=== PATIENT | female | born 1985 | race Hispanic/Latino ===

== ENCOUNTER 2016-10-15 12:59 | Inpatient (IN) | payer OTHER ==
[~2016-10-15] VITALS: Ht 162.6 cm; Wt 81.6 kg
[2016-10-15] VITALS (26 sets, daily range): BP systolic 123–184; BP diastolic 70–114
[~2016-10-15 12:59] MED LIST: NO HOME MEDS
--- NOTE | 2016-10-15 13:25 | NUR ---
DR HOLLOWAY IS ON UNIT. INFORMED OF 1ST BP. OBTAINED ORDER FOR IV SITE SALINE LOCKED WITH LAB DRAW. ALSO OK TO PT TO GO DOWN FOR U/S.
--- NOTE | 2016-10-15 13:35 | NUR ---
IV SITE, 18 G IN LFA X 1 ATTEMPT. LABS FROM SITE THEN SALINE LOCKED.
[2016-10-15 13:36] LABS: URINE BILIRUBIN - DIPSTICK NEGATIVE (NEGATIVE); URINE BLOOD DIPSTICK NEGATIVE (NEGATIVE); URINE CLARITY CLEAR; URINE COLOR YELLOW; URINE GLUCOSE - DIPSTICK NEGATIVE (NEGATIVE); URINE KETONE NEGATIVE (NEGATIVE); URINE LEUK ESTERASE TRACE (NEGATIVE); URINE NITRITE - DIPSTICK NEGATIVE (Negative); URINE PROTEIN - DIPSTICK TRACE mg/dL (NEG-TRACE); URINE SPECIFIC GRAVITY 1.015; URINE UROBILINOGEN - DIPSTICK 0.2 E.U./dL (0.2)
[2016-10-15 13:39] LABS: BARBITURATES NEGATIVE (NEGATIVE); COCAINE NEGATIVE (NEGATIVE); METHADONE NEGATIVE (NEGATIVE); OXCYCODONE NEGATIVE (NEGATIVE); TETRAHYDROCANNABIONOL NEGATIVE (NEGATIVE); TRICYLIC ANTIDEPRESSANTS NEGATIVE (NEGATIVE)
[2016-10-15 13:51] LABS: HEMATOCRIT 38.9 % (37.0-47.0); HEMOGLOBIN 13.3 g/dl (12.0-16.0); IMMATURE GRANULOCYTES 0.7 % (0.0-1.0); MEAN CELL VOLUME 87.6 fL CALC (80.0-100.0); MEAN CORPUSCULAR HGB CONC 34.2 g/L CALC (32.0-36.0); NEUT# 2.99 thou/uL (2.00-7.15); RED BLOOD COUNT 4.44 mill/uL (4.20-5.60); RED CELL DISTRI WIDTH 14.4 % (11.5-15.5)
[2016-10-15 14:03] LABS: ALBUMIN 3.3 g/dL (3.2-5.0); ALKALINE PHOSPHATASE 182 u/l (38-126); ANION GAP 14 (6-22 (CALC)); BILIRUBIN, TOTAL 0.3 mg/dL (0.0-1.4); BUN 8 mg/dL (7-17); BUN/CREATININE RATIO 17 (12-20 (CALC)); CALCIUM 9.1 mg/dL (8.4-10.2); CARBON DIOXIDE 19 mmol/l (22-30); CHLORIDE 107 mmol/l (95-108); CREATININE 0.5 mg/dL (0.5-1.0); GFR > 60 ML/MIN (>=60 (CALC)); GFR FOR AFR.AMER. > 60 ML/MIN (>=60 (CALC)); GLUCOSE 65 mg/dL (65-105); POTASSIUM 4.2 mmol/l (3.5-5.1); SGOT/AST 19 u/l (14-36); SGPT/ALT 24 u/l (9-52); SODIUM 135 mmol/l (137-146); TOTAL PROTEIN 6.2 g/dL (6.3-8.2)
--- NOTE | 2016-10-15 14:15 | NUR ---
PT IS UP IN BED HOLDING INFANT. CONDITION IS STABLE. VITALS CHARTED. REFLEXES NOW + 2 BLE, NO CLONUS.
--- NOTE | 2016-10-15 14:50 | NUR ---
PT UP TO W/C. TO U/S. CONDITION IS STABLE. NO HEADACHE AT THIS TIME. BPP ORDERED.
--- NOTE | 2016-10-15 15:05 | NUR ---
PT RETURNED FROM U/S. [email or web address] REPORTS BPP 8.8. PT IN BED, RESUMED EFM. CONDITION IS STABLE. LIGHTS DIM. NO VISITORS AT THIS TIME. REASSURED AND PT GOING TO REST. NO NEEDS AT THIS TIME.
--- NOTE | 2016-10-15 15:10 | NUR ---
DR HOLLOWAY ON UNIT, REVIEWED LABS, BP'S AND BPP 02/08. OBTAINED ORDERS FOR PROCARDIA.
--- NOTE | 2016-10-15 15:20 | NUR ---
DR HOLLOWAY ORDERED IV LABABTOLOL WELL. PROCARDIA AND LABATOLOL GIVEN.
--- NOTE | 2016-10-15 15:34 | NUR ---
DR MONROE IN TO SEE PT. SVE DONE, 1 CM, 50%, AND 0 STATION. OBATINED ORDERS FOR MORE LABATOLOL.
--- NOTE | 2016-10-15 15:52 | NUR ---
DR ROONEY IN TO SPEAK WITH PT. DISCUSSED C/S VS INDUCTION. ALSO RN DISCUSSED MAGNESIUM AND LABATOLOL AND PROCARDIA WITH ELENA MCKEON INTERPERATING.
--- NOTE | 2016-10-15 16:08 | NUR ---
IV LABATOLOL 20 MG GIVEN SLOW PUSH.
--- NOTE | 2016-10-15 16:18 | NUR ---
MAG STARTED, 4 GM BOLUS, THE WILL BE 2.5 GM/HR.
--- NOTE | 2016-10-15 16:25 | NUR ---
GIL PLACED TO GRAVITY, LEG STRAP ON. PT POSITIONED TO LEFT TILT. HEADACHE, PAIN OF 6/10. LIGHT DIM, ROOM QUIET. MAG RUNNING. PT RESTING.
--- NOTE | 2016-10-15 16:45 | NUR ---
PT RESTING QUIETLY IN BED WITH EYES CLOSED BREATHING EASILY, SATS 97%. EASILY AROUSED. NO NEEDS.
--- NOTE | 2016-10-15 16:55 | NUR ---
PT RESTING QUIELTY, BREATHING EASILY, EASILY AROUSED, NO MORE HEADACHE. NO PROBLEMS OR NEEDS AT THIS TIME.
[2016-10-15] MEDS ORDERED: PRE-NATAL PO (17:04)
--- NOTE | 2016-10-15 17:57 | NUR ---
PT RESTING QUIETLY, EASILY AROUSED, FHT'S DIFFICULTY TRACING, ADJUSTED MONITOR. PT STATES NO PAIN, QUESTIONS OR CONCERNS AT THIS TIME. OCCATIONAL CTX FELT. IV SITE WNL, MAG AND IV FLUIDS RUNNING WNL.
--- NOTE | 2016-10-15 18:34 | NUR ---
PT RESTING QUIETLY IN BED, CONDITION IS STABLE. NO HEADACHE. NO NEEDS AT THIS TIME. REPORT IS READY FOR NEXT SHIFT.
--- NOTE | 2016-10-15 19:00 | NUR ---
PT RESTING IN BED AND WATCHES TV. IV LR AND MAGNESIUM PER INFUSION PUMPS. IV SITE WNL. GIL CATHETER DRAINING LIGHT YELLOW URINE. EXTERNAL AND TOCO MONITORS ON. PT DENIES HEADACHE OR GASTRIC PAIN AT THIS TIME. NO FAMILY AT BEDSIDE. INTERPRETATION BY PENELOPE JUDGE.
--- NOTE | 2016-10-15 20:30 | NUR ---
AND SONS AT BEDSIDE. OLDEST SON ABLE TO INTERPRET. STATES HEADACHE IS BETTER BUT STILL PRESENT. HAS NO QUESTIONS OR CONCERNS. BED IN LOW POSITION. CALL LIGHT WITHIN REACH. REMAINS ON HOURLY ASSESSMENTS.
--- NOTE | 2016-10-15 22:50 | NUR ---
MAGNESIUM LEVEL AT 5.6 MG/DL. LEVEL IS WITHIN THERAPEUTIC RANGE.
--- NOTE | 2016-10-15 23:42 | NUR ---
CRITICAL MAG LEVEL RECEIVED FROM LAB. REPORTED TO PATIENT'S NURSE Mena GUADARRAMA RN.
[2016-10-16] VITALS (42 sets, daily range): BP systolic 116–159; BP diastolic 53–93
--- NOTE | 2016-10-16 01:15 | NUR ---
PT SLEEPING. STATUS STABLE. BED IN LOW POSITION. CALL LIGHT WITHIN REACH. GIL REMAINS IN PLACE. SIGNIFICANT OTHER AT BEDSIDE. REMAINS ON HOURLY MAGNESIUM INTERVENTIONS.
--- NOTE | 2016-10-16 04:06 | NUR ---
PT SLEEPING. SNORING SOFTLY. IV'S INFUSING PER MED PUMPS. IV SITE WNL. GIL DRAINING LIGHT YELLOW URINE. EXTERNAL MONITORS ON AND RECORDING. O2 SATURATION REMAINS ABOVE 95% ON ROOM AIR. REMAINS NPO EXCEPT ICE CHIPS. VS STABLE AND AFEBRILE. FHT'S BASING 120'S.
--- NOTE | 2016-10-16 05:15 | NUR ---
PT ON LEFT SIDE. TOCO NOT RECORDING CONTRACTIONS DUE TO PT'S POSITION. SEE PREVIOUS LABOR CHARTING FOR AVERAGE DURATION AND TIMING OF CONTRACTIONS. PT SLEEPING.
--- NOTE | 2016-10-16 06:00 | NUR ---
PT TURNED TO LEFT SIDE ON HER OWN. CONTRACTIONS NOT RECORDING. SLEEPING. SIGNIFICANT OTHER AT BEDSIDE. PT REMAINS STABLE.
--- NOTE | 2016-10-16 06:48 | NUR ---
DR. HOLLOWAY PHONES TO UNIT. PT STATUS GIVEN TO PHYSICIAN. NO NEW ORDERS RECEIVED.
--- NOTE | 2016-10-16 07:10 | NUR ---
RESTS QUIELTY WITH EYES CLOSED. RESP EASY. S/O IN ROOM. GIL DRAINS PALE YELLOW URINE. IV INFUSES VIA IV PUMPS W/O PROBLEM, IV SITS HEALTHY.
--- NOTE | 2016-10-16 07:53 | NUR ---
PT AWAKE, DR HOLLOWAY HERE VE, 1-2CM,70% EFF. DISCUSSED PLAN OF CARE. PLAN TO BEGIN PITOCIN TO INDUCE CONTR. PT ACKNOWLEDGES UNDERSTANDING.
--- NOTE | 2016-10-16 09:00 | NUR ---
LUNG SDS CLEAR BILATERALLY, PT ABLE TO DEEP BREATHE. +BOWEL SDS. APICAL HR REGULAR.
--- NOTE | 2016-10-16 10:40 | NUR ---
ENTRIES FOR LABOR PAOGRESS FOR 0715, 0745 ENTERED BY Deandre GUZMAN RN.
--- NOTE | 2016-10-16 11:03 | NUR ---
PT RESTS ON R SIDE, AWAKE, RESTS BETWEEN CONTR.
--- NOTE | 2016-10-16 11:05 | NUR ---
DR HOLLOWAY ON UNIT REVIEWS CURRENT OBIX MONITOR TRACING CURRENT BP, MD WILL RETURN TO CHECK PT.
--- NOTE | 2016-10-16 12:09 | NUR ---
PT RESTS WITH EYES CLOSED, EASILY AROUSABLE, US ADJUST FOR FH. PT AROUSES WITH CONTR, RESTS BETWEEN.
--- NOTE | 2016-10-16 13:20 | NUR ---
PT TO L SIDE TILT, DENIES VISUAL DISTURBANCE, DENIES EPIGASTRIC DISTRESS.
--- NOTE | 2016-10-16 13:45 | NUR ---
DR HOLLOWAY PHONES IN, NOTIFIED PT STATUS, WILL BE IN TO SEE PT.
[2016-10-16 14:39] LABS: HEMATOCRIT 40.1 % (37.0-47.0); HEMOGLOBIN 13.5 g/dl (12.0-16.0); IMMATURE GRANULOCYTES 0.3 % (0.0-1.0); MEAN CELL VOLUME 87.7 fL CALC (80.0-100.0); MEAN CORPUSCULAR HGB 29.5 pG CALC (26.0-32.0); MEAN CORPUSCULAR HGB CONC 33.7 g/L CALC (32.0-36.0); NEUT# 5.41 thou/uL (2.00-7.15); RED BLOOD COUNT 4.57 mill/uL (4.20-5.60); RED CELL DISTRI WIDTH 14.8 % (11.5-15.5)
--- NOTE | 2016-10-16 14:40 | NUR ---
PT CALLS, STATES FEELS LIKE SHE IS BLEEDING. MOD AMT BLEEDING WITH SMALL CLOTS, DR HOLLOWAY IN ROOM. VE SAME. PAD CHANGED, BILLIE CARE DONE. NORMAL SHOW AT THIS TIME.
--- NOTE | 2016-10-16 14:53 | NUR ---
MAGNESIIUM LEVEL REPORT TO UNIT, IV MAGNESIUM DECREASED TO 1.5 GRAMS/HR.
--- NOTE | 2016-10-16 15:10 | NUR ---
DR HOLLOWAY ORDERS TO CALL IN OR TEAM FOR POSSIBLE C SECTION.
--- NOTE | 2016-10-16 15:34 | NUR ---
IV MAGNESIUM DISCONTINUED, IV PITOCIN DRIP DISCONTINUED.
--- NOTE | 2016-10-16 15:48 | NUR ---
P PREPARED FOR OR, EFM OFF, PT TO CS ROOM VIA BED WITH OR PERSONNEL AND THIS NURSE.
--- NOTE | 2016-10-16 16:00 | NUR ---
PAD FROM 1440 WEIGHED, 175 GRAMS.
--- NOTE | 2016-10-16 17:58 | NUR ---
PT TO ROOM 205 VIA BED, WITH REC RM PERSONNEL. PT AWAKE ALERT. SETTLED IN BED.
--- NOTE | 2016-10-16 18:10 | NUR ---
GIL OUTPUT BEFORE OR 75 ML, OR OUTPUT 75 ML, RECOVERY ROOM OUTPUT 75 ML. EBL 700ML.
--- NOTE | 2016-10-16 18:20 | NUR ---
BILLIE CARE DONE, MOD BLEEDINGG THEN LIGHT DARK RUBRA FUNDUS FIRM AT U. PT RESTS, SNORING. RESP EASY.
--- NOTE | 2016-10-16 18:32 | NUR ---
RESTS IN BED AWAKE ALERT, TALKS WITH S/O.
--- NOTE | 2016-10-16 18:55 | NUR ---
PT REPORT RECEIVED FROM JIMENA JUDGE. PT RESTING IN BED . IV PITOCIN AND LR INFUSING PER MED PUMPS. WAITING FOR PHARMACY TO PROFILE MAGNESIUM SULFATE. GIL CATHETER DRAINING BRO COLORED URINE. SCD'S IN PLACE. BED IN LOW POSITION, SIDE RAILS UP, CALL LIGHT WITHIN REACH. DENIES PAIN.
--- NOTE | 2016-10-16 19:50 | NUR ---
REPORT TO ONCOMING NURSE, IN PT ROOM.
--- NOTE | 2016-10-16 21:31 | NUR ---
PT SLEEPING AND SNORING LIGHTLY. RESP EVEN AND UNLABORED. BED IN LOW POSITION, CALL LIGHT WITHIN REACH, TOP SIDE RAILS IN UP POSITION. SLEEPING IN CRIB NEXT TO MOTHER'S BED.
[2016-10-16 23:30] LABS: HEMATOCRIT 30.6 % (37.0-47.0); HEMOGLOBIN 10.2 g/dl (12.0-16.0); IMMATURE GRANULOCYTES 0.4 % (0.0-1.0); MEAN CELL VOLUME 89.2 fL CALC (80.0-100.0); MEAN CORPUSCULAR HGB 29.7 pG CALC (26.0-32.0); MEAN CORPUSCULAR HGB CONC 33.3 g/L CALC (32.0-36.0); NEUT# 5.96 thou/uL (2.00-7.15); RED BLOOD COUNT 3.43 mill/uL (4.20-5.60); RED CELL DISTRI WIDTH 14.9 % (11.5-15.5)
[2016-10-17] VITALS (9 sets, daily range): BP systolic 131–152; BP diastolic 73–96
--- NOTE | 2016-10-17 00:37 | NUR ---
PT SLEEPING SOUNDLY AND SNORING LIGHTLY. IV'S INFUSING PER MED PUMPS. MAGNESIUM SULFATE REMAINS AT 1 GM/HR. GIL DRAINING CLEAR, LIGHT YELLOW URINE. VS STABLE. SCDS IN PLACE.
--- NOTE | 2016-10-17 04:50 | NUR ---
0435: PT AWAKE AND COMPLAINS OF ITCHING. NUBAIN GIVEN FOR ITCHING. SEE E-MAR FOR TIME. REMAINS ON HOURLY VS, PULSE OX, AND I&O. PERICARE DONE. FF @ 1 ABOVE UMBILICUS. LIGHT RUBRA ON BILLIE PAD. 0450: PT DANGLED AT SIDE OF BED. DENIES DIZZINESS, [place], WEAKNESS OR NAUSEA. SITS IN CHAIR AT BEDSIDE. SCDS REMOVED.
--- NOTE | 2016-10-17 06:20 | NUR ---
PT ASSISTED BACK TO BED. TOLERATED WITHOUT DIZZINESS OR WEAKNESS. IVS REMAIN ON MED PUMPS. GIL DRAINS LIGHT YELLOW URINE. SCDS REMAIN OFF. PT STATES SMALL AMOUNT OF PAIN. REFUSES PAIN MEDICATION. PT REMAINS STABLE.
--- NOTE | 2016-10-17 07:15 | NUR ---
RESTS WITH EYES CLOSED, ALLOWED TO REST, RESP EASY .
--- NOTE | 2016-10-17 07:40 | NUR ---
AWAKE, ALERT. SERVED BREAKFAST.
--- NOTE | 2016-10-17 08:00 | NUR ---
PT DENIES PAIN, DENIES H/A, DENIES VISUAL DISURBANCE, DENIES EPIGASTRIC PAIN . GIL DRAINS PALE YELLOW URINE W/O PROBLEM.
--- NOTE | 2016-10-17 08:45 | NUR ---
BILLIE CARE DONE, PT LIFTS EASILY. FAMILY IN ROOM TO VISIT.
--- NOTE | 2016-10-17 08:55 | NUR ---
PT MEDICATED FOR ITCHING WITH BENADRYL.
--- NOTE | 2016-10-17 10:00 | NUR ---
PT ENC TO REST, HAS BEEN DRESSING INFANT. MEDICATED WITH NUBAIN FOR ITCHING, STATED BENADRYL DID NOT HELP.
--- NOTE | 2016-10-17 10:20 | NUR ---
DR HOLLOWAY IN TO SEE PT.
--- NOTE | 2016-10-17 10:21 | NUR ---
IV MAGNESIUM DISCONTINUED ORDERED.
--- NOTE | 2016-10-17 11:30 | NUR ---
PT ENC TO REST. FAMILY IN ROOM.
--- NOTE | 2016-10-17 11:45 | NUR ---
PT STATES MED HELPED FOR ITCHING, HAS BEEN TAKING FLUIDS PO. DENIES PAIN.
--- NOTE | 2016-10-17 12:45 | NUR ---
PT RESTS GRAEME, FAMILY HAS LEFT ROOM.
--- NOTE | 2016-10-17 16:02 | NUR ---
PT ASKED FOR MED FOR ITCHING, OFFERED PO MED, PT STATES SHE PREFERS MED SHE RECEIED EARLIER, MEDICATED FOR ITCHING WITH NUBAIN IV. IV FLUSH SAS.
--- NOTE | 2016-10-17 16:30 | NUR ---
OOB TO VOID, AMBULATED W/O PROBLEM, BILLIE CARE DONE, BACK TO BED.
--- NOTE | 2016-10-17 17:00 | NUR ---
PT DENIES ITCHING, RESTS IN BED.
--- NOTE | 2016-10-17 18:20 | NUR ---
PT HAS BEEN CARING FOR INFANT, POSITIVE BONDING. STATES PAIN MED RELIEVED PAIN. DENIES PAIN.
--- NOTE | 2016-10-17 19:17 | NUR ---
Initial shift assessment. Pt up in room ambulating with steady gait without assistance. Pt denies headache, epigastric pain, visual disturbances. States pain 3/10 and other nurse gave her pain medication; RN encouraged her to ask for more if needed. RN had pt perform incentive spirometer, able to obtain 1500 x 5 and encouraged pt to ambulate in [place] x 3 tonight; pt voiced understanding. low abdominal dressing clean, dry, intact pt understands she should remove it when she takes a shower. Murmur heard on auscultation of heart, VS stable and WNL.
--- NOTE | 2016-10-17 22:30 | NUR ---
UP TO SHOWER. LINENS CHANGED. TOLERATED WELL, WITHOUT DIZZINESS OR LIGHTHEADEDNESS. ABDOMINAL DRESSING REMOVED IN SHOWER- JUAN CARLOS CLEAN, DRY AND INTACT. OPEN TO AIR. PATIENT ENCOURAGED TO AMBULATE IN HALLWAYS.
--- NOTE | 2016-10-17 23:09 | NUR ---
pt ambulated in hallway with steady gait x 3 laps while pushing baby in crib; accompanied by RN . pt had steady gait and breathing was even and unlabored.
[2016-10-18 00:03] VITALS: BP 138/81
--- NOTE | 2016-10-18 01:58 | NUR ---
PT RESTING IN BED WITH EYES CLOSED, NO DISTRESS. BABY IN CRIB AT BEDSIDE, NO DISTRESS.
--- NOTE | 2016-10-18 04:00 | NUR ---
Pt continues to remain asleep without distress. Baby in nursery for evaluation by nursery nurse.
--- NOTE | 2016-10-18 05:45 | NUR ---
Pt awake, RN in room to draw AM lab. Pt denies pain but accepted Motrin 600mg po to keep pain level at zero, and given procardia as ordered. RN checked incision; WNL. in nursery at this time.
[2016-10-18 06:27] LABS: HEMATOCRIT 29.3 % (37.0-47.0); HEMOGLOBIN 9.8 g/dl (12.0-16.0); IMMATURE GRANULOCYTES 0.4 % (0.0-1.0); MEAN CELL VOLUME 90.4 fL CALC (80.0-100.0); MEAN CORPUSCULAR HGB 30.2 pG CALC (26.0-32.0); MEAN CORPUSCULAR HGB CONC 33.4 g/L CALC (32.0-36.0); NEUT# 5.71 thou/uL (2.00-7.15); RED BLOOD COUNT 3.24 mill/uL (4.20-5.60); RED CELL DISTRI WIDTH 15.1 % (11.5-15.5)
--- NOTE | 2016-10-18 06:45 | NUR ---
RECEIVED REPORT FROM SONIA CARLOS RN. PT IS RESTING QUIELY IN BED WITH EYES CLOSED. NO S/S OF DISTRESS NOTED.
[2016-10-18 07:20] VITALS: BP 125/82
--- NOTE | 2016-10-18 07:20 | NUR ---
PT IN BED, CONDITION IS STABLE. ASSESSMENT CHARTED. PT VOIDING WNL, INCISION IS C/D/I WITH JUAN CARLOS INTACT. PT PASSING FLATUS, NO BM YET. ACTIVE BOWEL SOUNDS. PT PRERARING TO BREASTFEED .
--- NOTE | 2016-10-18 09:10 | NUR ---
PT IS RESTING QUIETLY IN BED WITH EYES CLOSED. NO S/S OF DISTRESS NOTED. INFANT IN OPEN CRIB IN ROOM.
--- NOTE | 2016-10-18 10:10 | NUR ---
PT IS UP IN BED INFANT, GOOD LATCH AND SUCKLE NOTED. PT STATES NO NEEDS AT THIS TIME.
[2016-10-18 11:35] VITALS: BP 137/85
--- NOTE | 2016-10-18 11:35 | NUR ---
PT IS UP IN BED. CONDITION IS STABLE. VITALS CHARTED, MOTRIN GIVEN FOR PAIN AND PROCARDIA GIVEN ORDERED. HOLDING . NO NEEDS AT THIS TIME.
--- NOTE | 2016-10-18 13:55 | NUR ---
PT IS RESTING QUIETLY IN BED, EASILY AROUSED. GAVE FRESH WATER. CONDITION IS STABLE. NO NEEDS AT THIS TIME.
--- NOTE | 2016-10-18 14:56 | NUR ---
PT IS UP IN BRP, VOIDING. VISITOR IN ROOM. NO NEEDS AT THIS TIME.
[2016-10-18 17:40] VITALS: BP 152/84
--- NOTE | 2016-10-18 17:43 | NUR ---
PT IS UP IN BED CARING FOR . CONDITION IS STABLE. MOTRIN GIVEN FOR PAIN OF 3/10. VITALS CHARTED. PT STATES NO NEEDS AT THIS TIME. PROCARDIA GIVEN ORDERED.
--- NOTE | 2016-10-18 18:27 | NUR ---
PT RESTING IN BED WATCHING TV. AWAITING SIG OTHER TO EAT DINNER. CONDITION IS STABLE. NO NEEDS AT THIS TIME. REPORT IS READY FOR NEXT SHIFT.
--- NOTE | 2016-10-18 18:55 | NUR ---
RN in room to introduce to self at beginning of shift. Boyfriend just arrived to have dinner with her. Pt states pain 09/10, RN stated will come back to perform shift assessment after dinner.
--- NOTE | 2016-10-18 19:30 | NUR ---
Pt her baby while eating gourmet dinner provided by the hospital, boyfriend in the room at this time.
[2016-10-18 20:00] VITALS: BP 137/86
--- NOTE | 2016-10-18 20:00 | NUR ---
RN in room for shift assessment. pt able to perform incentive spirometer to 1500 x 3. pt denies having BM since delivery, pt already drinking large amounts of water, RN encouraged ambulationin hallway tonight. Pt denies headache, epigastric pain or visual disturbances, reflexes WNL, no clonus. Fundus firm @ umbilicus, light rubra lochia. low transverse abdominal incision open to air no redness draining or swelling, dimitrios intact. IV removed from left wrist with catheter intact. pt states pain 3/10 and does not need anything further for pain. pt doing a good job and caring for infant without assistance, but told to ask for help if needed. pt doing own maryellen care.
--- NOTE | 2016-10-18 22:02 | NUR ---
Pt resting with eyes closed, no apparent distress. baby asleep in crib at bedside, no apparent distress.
--- NOTE | 2016-10-18 22:59 | NUR ---
PT asleep without distress. baby asleep without distress in crib beside mom's bed.
[2016-10-19] VITALS: BP 153/85
--- NOTE | 2016-10-19 00:09 | NUR ---
PT ambulated in hallway with steady gait x 3 laps. Up visiting with boyfriend, caring for baby. States pain 09/10, medicated for pain with Motrin and given procardia as ordered. Pt doing own pericare and ambulating around room without difficulty.
--- NOTE | 2016-10-19 02:02 | NUR ---
Pts boyfriend left 1 hour ago. pt asleep without distress, baby sleeping in crib at bedside without distress.
--- NOTE | 2016-10-19 04:14 | NUR ---
PT asleep without distress. asleep in crib beside mom's bed without distress.
[2016-10-19 06:05] VITALS: BP 139/87
--- NOTE | 2016-10-19 06:05 | NUR ---
Pt awakened to give procardia and motrin, states pain a 2 at this time. Vital signs stable, pt went right back to sleep after medication administration.
--- NOTE | 2016-10-19 07:30 | NUR ---
RESTS IN BED, SERVED BREAKFAST.
--- NOTE | 2016-10-19 08:20 | NUR ---
PT SITS ON SIDE OF BED, DENIES H/A, DENIES DIZZINESS, DENIES VISUAL DISTURBANCE, STATES SHE HAS BEEN URIATING W/O PROBLELM, NO BM YET, STATES SHE HAS BEEN PASSING GAS.
--- NOTE | 2016-10-19 09:00 | NUR ---
JUAN CARLOS REMOVED BY DR HOLLOWAY, INCISION CLEAN, DRY. PLAN FOR DISCHARGE FOR TODAY.
[2016-10-19] MEDS ORDERED: IBUPROFEN600 MG PO (09:19)
[2016-10-19] MEDS ORDERED: PROCARDIA10 MG PO (09:21)
[2016-10-19] MEDS ORDERED: FERROUS SULF325 M2 PO (09:22)
[2016-10-19] MEDS ORDERED: NORCO1 TA2 PO (09:23)
--- NOTE | 2016-10-19 11:00 | NUR ---
PT SHOWERED, IS DRESSED PREPARING FOR DISCHARGE.
[2016-10-19 11:40] VITALS: BP 149/89
--- NOTE | 2016-10-19 12:15 | NUR ---
Discharge instructions given and reviewed. Pt. verbalizes understanding. Discharged in good condition via Wheelchair to Home with in carseat accompanied by family, escorted by this nurse.
== END 2016-10-19 12:15 | disposition home or self-care (01) | DRG 765 ==
LOC: OB 12:59
PROC: 10D00Z1 Extraction of Products of Conception, Low, Open Approach (ICD-10-PCS; principal; 2016-10-16)
PROC: 0UT70ZZ Resection of Bilateral Fallopian Tubes, Open Approach (ICD-10-PCS; 2016-10-16)
DX: O13.4 Gestational [pregnancy-induced] hypertension without significant proteinuria, complicating childbirth (principal); D62 Acute posthemorrhagic anemia; O45.93 Premature separation of placenta, unspecified, third trimester; O62.1 Secondary uterine inertia; O90.81 Anemia of the puerperium; Z3A.38 38 weeks gestation of pregnancy; Z37.0 Single live birth
CPT/HCPCS: J2270